=== PATIENT | female | born 1945 | race Caucasian/White ===

== ENCOUNTER 2018-01-03 06:27 | Inpatient (IN) | payer MEDICARE, BC ==
[2018-01-03] MEDS: ONDANSETRON 4MG/2ML VIAL (J2405) IV (06:45)
[2018-01-03] MEDS: fentaNYL 100 MCG/2 ML INJECTION (J3010) IV ×3 (06:45→08:35)
[2018-01-03] MEDS: NS 500 ML IV (07:08)
[2018-01-03 07:25] LABS: BASO % 0.6 % (0.0-1.0); EOS # 0.1 10^3/uL (0.0-0.50); EOS % 1.3 % (0.0-3.0); HEMATOCRIT 41.5 % (36.0-47.0); HEMOGLOBIN 13.1 g/dl (12.0-15.5); IMMATURE GRANULOCYTE % 0.5 % (0-3.0); LYMPH # 2.1 10^3/uL (1.5-4.5); LYMPH % 32.4 % (24.0-44.0); MEAN CORPUSCULAR HGB CONC 31.6 g/dl (32.0-36.5); MEAN CORPUSCULAR VOLUME 88.7 fl (80.0-96.0); MONO # 0.5 10^3/uL (0.0-0.8); MONO % 8.5 % (0.0-5.0); NEUTROPHILS # 3.6 10^3/uL (1.8-7.7); NEUTROPHILS % 56.7 % (36.0-66.0); PLATELET COUNT, AUTOMATED 264 10^3/uL (150-450); RED BLOOD COUNT 4.68 10^6/uL (4.00-5.40); RED CELL DISTRIBUTION WIDTH 13.5 % (11.5-14.5); WHITE BLOOD COUNT 6.4 10^3/uL (4.0-10.0)
[2018-01-03 07:29] LABS: INR 0.92; PROTHROMBIN TIME 12.4 SECONDS (12.4-14.5)
[2018-01-03 07:30] LABS: PARTIAL THROMBOPLASTIN TIME 31.8 SECONDS (26.8-37.9)
[2018-01-03 07:31] LABS: ANION GAP 9 MEQ/L (8-16); BLOOD UREA NITROGEN 20 MG/DL (7-18); CARBON DIOXIDE LEVEL 25 MEQ/L (21-32); CHLORIDE LEVEL 110 MEQ/L (98-107); CREATININE FOR GFR 0.75 MG/DL (0.55-1.30); GLOMERULAR FILTRATION RATE > 60.0 (>39); GLUCOSE, FASTING 106 MG/DL (70-100); POTASSIUM SERUM 4.1 MEQ/L (3.5-5.1); SODIUM LEVEL 144 MEQ/L (136-145)
[2018-01-03] MEDS ORDERED: PROPOFOL 200 MG/20 ML VIAL As Ordered (07:31)
[2018-01-03] MEDS: PROPOFOL 200 MG/20 ML VIAL IV (07:57)
[2018-01-03] MEDS ORDERED: ONDANSETRON 4MG/2ML VIAL (J2405) IV (08:30)
[2018-01-03] MEDS ORDERED: BISACODYL 5 MG TAB PO (08:30)
[2018-01-03] MEDS: **hydrALAZINE HCL** 25 MG TAB PO ×2 (09:00→20:41)
[2018-01-03] MEDS: SENOKOT S TAB PO ×2 (09:00→20:39)
[2018-01-03] MEDS ORDERED: BUPIVACAINE/EPIN 0.5% 30 ML VIAL As Ordered (10:25)
[2018-01-03] MEDS: MORPHINE 4 MG/ML 1ML VIAL/SYRINGE (J2270) IV ×2 (10:51→12:14)
[2018-01-03] MEDS ORDERED: PERCOCET 5MG/325MG TAB PO ×3 (13:00→13:45)
[2018-01-03] MEDS: PERCOCET 5MG/325MG TAB PO (20:40)
[2018-01-04] MEDS: PERCOCET 5MG/325MG TAB PO ×4 (00:43→20:26)
[2018-01-04 06:35] LABS: BASO % 0.4 % (0.0-1.0); EOS # 0.1 10^3/uL (0.0-0.50); EOS % 0.9 % (0.0-3.0); HEMATOCRIT 35.4 % (36.0-47.0); HEMOGLOBIN 11.5 g/dl (12.0-15.5); IMMATURE GRANULOCYTE % 0.3 % (0-3.0); LYMPH # 1.7 10^3/uL (1.5-4.5); LYMPH % 23.9 % (24.0-44.0); MEAN CORPUSCULAR HEMOGLOBIN 28.7 pg (27.0-33.0); MEAN CORPUSCULAR HGB CONC 32.5 g/dl (32.0-36.5); MEAN CORPUSCULAR VOLUME 88.3 fl (80.0-96.0); MONO # 1.1 10^3/uL (0.0-0.8); MONO % 15.7 % (0.0-5.0); NEUTROPHILS # 4.1 10^3/uL (1.8-7.7); NEUTROPHILS % 58.8 % (36.0-66.0); PLATELET COUNT, AUTOMATED 215 10^3/uL (150-450); RED BLOOD COUNT 4.01 10^6/uL (4.00-5.40); RED CELL DISTRIBUTION WIDTH 13.4 % (11.5-14.5); WHITE BLOOD COUNT 6.9 10^3/uL (4.0-10.0)
[2018-01-04 07:02] LABS: ANION GAP 8 MEQ/L (8-16); BLOOD UREA NITROGEN 15 MG/DL (7-18); CALCIUM LEVEL 8.5 MG/DL (8.8-10.2); CARBON DIOXIDE LEVEL 25 MEQ/L (21-32); CHLORIDE LEVEL 108 MEQ/L (98-107); CREATININE FOR GFR 0.56 MG/DL (0.55-1.30); GLOMERULAR FILTRATION RATE > 60.0 (>39); GLUCOSE, FASTING 104 MG/DL (70-100); POTASSIUM SERUM 3.8 MEQ/L (3.5-5.1); SODIUM LEVEL 141 MEQ/L (136-145)
[2018-01-04] MEDS: SENOKOT S TAB PO (09:42)
[2018-01-04] MEDS: **hydrALAZINE HCL** 25 MG TAB PO (09:43)
[2018-01-04] MEDS: BUPIVACAINE/EPIN 0.25% 30 ML VIAL As Ordered (13:12)
[2018-01-04] MEDS: ceFAZolin 1GM INJ (J0690 PER 500MG) As Ordered (13:12)
[2018-01-04] MEDS: ceFAZolin 2 GM/D5W 50 ML IV BAG (J0690 PER 500MG) As Ordered (14:09)
[2018-01-04] MEDS ORDERED: fentaNYL 100 MCG/2 ML INJECTION (J3010) As Ordered (14:57)
[2018-01-04] MEDS ORDERED: LIDOCAINE 2% INJ 100 MG/5 ML SDV (FOR ANES.) As Ordered (14:57)
[2018-01-04] MEDS ORDERED: PROPOFOL 200 MG/20 ML VIAL As Ordered (14:57)
[2018-01-04] MEDS ORDERED: MIDAZOLAM INJ 2 MG/2 ML VIAL (J2250) As Ordered (14:57)
[2018-01-04] MEDS ORDERED: BUPIVACAINE/DEXTROSE 0.75% 2 ML AMP As Ordered (15:09)
[2018-01-04] MEDS ORDERED: fentaNYL 100 MCG/2 ML INJECTION (J3010) IV (16:45)
[2018-01-04] MEDS ORDERED: ONDANSETRON 4MG/2ML VIAL (J2405) IV (16:45)
[2018-01-04] MEDS ORDERED: NORCO, ANEXSIA 5/325MG TABLET (HYDROcodone/ACETAMINOPHEN) PO (16:45)
[2018-01-04] MEDS: LR 1,000 ML IV (16:45)
[2018-01-04] MEDS ORDERED: MORPHINE 4 MG/ML 1ML VIAL/SYRINGE (J2270) IV (17:15)
[2018-01-04] MEDS: HEPARIN SOD (PORCINE) 5000 UNITS/ML VIAL SQ (20:26)
[2018-01-05] MEDS: PERCOCET 5MG/325MG TAB PO ×5 (01:12→21:50)
[2018-01-05] MEDS: MOM 30ML SUSPENSION UDC PO (09:57)
[2018-01-05] MEDS: HEPARIN SOD (PORCINE) 5000 UNITS/ML VIAL SQ ×2 (09:57→21:50)
[2018-01-05] MEDS: METAMUCIL (PSYLLIUM) PACKET PO (09:57)
[2018-01-05] MEDS: LOSARTAN 50 MG TAB PO (12:36)
[2018-01-06 07:08] LABS: BASO % 0.4 % (0.0-1.0); EOS # 0.1 10^3/uL (0.0-0.50); EOS % 1.5 % (0.0-3.0); HEMATOCRIT 34.9 % (36.0-47.0); IMMATURE GRANULOCYTE % 0.2 % (0-3.0); LYMPH % 25.2 % (24.0-44.0); MEAN CORPUSCULAR HEMOGLOBIN 28.1 pg (27.0-33.0); MEAN CORPUSCULAR HGB CONC 31.5 g/dl (32.0-36.5); MONO # 0.9 10^3/uL (0.0-0.8); MONO % 10.9 % (0.0-5.0); NEUTROPHILS % 61.8 % (36.0-66.0); PLATELET COUNT, AUTOMATED 215 10^3/uL (150-450); RED BLOOD COUNT 3.92 10^6/uL (4.00-5.40); RED CELL DISTRIBUTION WIDTH 13.2 % (11.5-14.5); WHITE BLOOD COUNT 8.1 10^3/uL (4.0-10.0)
[2018-01-06 07:25] LABS: ANION GAP 5 MEQ/L (8-16); BLOOD UREA NITROGEN 16 MG/DL (7-18); CALCIUM LEVEL 8.5 MG/DL (8.8-10.2); CARBON DIOXIDE LEVEL 29 MEQ/L (21-32); CHLORIDE LEVEL 109 MEQ/L (98-107); CREATININE FOR GFR 0.54 MG/DL (0.55-1.30); GLOMERULAR FILTRATION RATE > 60.0 (>39); GLUCOSE, FASTING 95 MG/DL (70-100); POTASSIUM SERUM 3.9 MEQ/L (3.5-5.1); SODIUM LEVEL 143 MEQ/L (136-145)
[2018-01-06] MEDS: PERCOCET 5MG/325MG TAB PO ×3 (07:47→20:38)
[2018-01-06] MEDS: MOM 30ML SUSPENSION UDC PO (09:45)
[2018-01-06] MEDS: METAMUCIL (PSYLLIUM) PACKET PO (09:46)
[2018-01-06] MEDS: HEPARIN SOD (PORCINE) 5000 UNITS/ML VIAL SQ ×2 (09:46→20:38)
[2018-01-06] MEDS: LOSARTAN 50 MG TAB PO (09:47)
[2018-01-07] MEDS: PERCOCET 5MG/325MG TAB PO ×3 (05:36→21:02)
[2018-01-07] MEDS: METAMUCIL (PSYLLIUM) PACKET PO (09:00)
[2018-01-07] MEDS: MOM 30ML SUSPENSION UDC PO (09:00)
[2018-01-07] MEDS: LOSARTAN 50 MG TAB PO (09:10)
[2018-01-07] MEDS: HEPARIN SOD (PORCINE) 5000 UNITS/ML VIAL SQ ×2 (09:11→21:02)
[2018-01-08] MEDS: PERCOCET 5MG/325MG TAB PO ×4 (05:46→21:26)
[2018-01-08] MEDS: MOM 30ML SUSPENSION UDC PO (09:00)
[2018-01-08] MEDS: METAMUCIL (PSYLLIUM) PACKET PO (09:00)
[2018-01-08] MEDS: HEPARIN SOD (PORCINE) 5000 UNITS/ML VIAL SQ ×2 (09:09→21:26)
[2018-01-08] MEDS: LOSARTAN 50 MG TAB PO (09:10)
[2018-01-09] MEDS: PERCOCET 5MG/325MG TAB PO ×4 (04:47→21:26)
[2018-01-09] MEDS: MOM 30ML SUSPENSION UDC PO (09:00)
[2018-01-09] MEDS: METAMUCIL (PSYLLIUM) PACKET PO (09:00)
[2018-01-09] MEDS: LOSARTAN 50 MG TAB PO (09:26)
[2018-01-09] MEDS: HEPARIN SOD (PORCINE) 5000 UNITS/ML VIAL SQ ×2 (09:26→21:25)
[2018-01-10] MEDS: PERCOCET 5MG/325MG TAB PO ×4 (01:30→20:49)
[2018-01-10] MEDS: METAMUCIL (PSYLLIUM) PACKET PO (08:16)
[2018-01-10] MEDS: HEPARIN SOD (PORCINE) 5000 UNITS/ML VIAL SQ ×2 (08:16→20:48)
[2018-01-10] MEDS: MOM 30ML SUSPENSION UDC PO (08:16)
[2018-01-10] MEDS: LOSARTAN 50 MG TAB PO (08:17)
[2018-01-11 08:10] LABS: BASO % 0.4 % (0.0-1.0); EOS # 0.1 10^3/uL (0.0-0.50); EOS % 1.8 % (0.0-3.0); HEMATOCRIT 34.3 % (36.0-47.0); HEMOGLOBIN 10.9 g/dl (12.0-15.5); IMMATURE GRANULOCYTE % 0.5 % (0-3.0); LYMPH # 1.5 10^3/uL (1.5-4.5); LYMPH % 18.6 % (24.0-44.0); MEAN CORPUSCULAR HEMOGLOBIN 28.2 pg (27.0-33.0); MEAN CORPUSCULAR HGB CONC 31.8 g/dl (32.0-36.5); MEAN CORPUSCULAR VOLUME 88.9 fl (80.0-96.0); MONO # 0.7 10^3/uL (0.0-0.8); MONO % 8.7 % (0.0-5.0); NEUTROPHILS # 5.5 10^3/uL (1.8-7.7); PLATELET COUNT, AUTOMATED 304 10^3/uL (150-450); RED BLOOD COUNT 3.86 10^6/uL (4.00-5.40); RED CELL DISTRIBUTION WIDTH 12.9 % (11.5-14.5); WHITE BLOOD COUNT 7.9 10^3/uL (4.0-10.0)
[2018-01-11 08:32] LABS: ANION GAP 5 MEQ/L (8-16); BLOOD UREA NITROGEN 15 MG/DL (7-18); CALCIUM LEVEL 8.9 MG/DL (8.8-10.2); CARBON DIOXIDE LEVEL 32 MEQ/L (21-32); CHLORIDE LEVEL 106 MEQ/L (98-107); CREATININE FOR GFR 0.67 MG/DL (0.55-1.30); GLOMERULAR FILTRATION RATE > 60.0 (>39); GLUCOSE, FASTING 125 MG/DL (70-100); POTASSIUM SERUM 4.3 MEQ/L (3.5-5.1); SODIUM LEVEL 143 MEQ/L (136-145)
[2018-01-11] MEDS: LOSARTAN 50 MG TAB PO (08:44)
[2018-01-11] MEDS: HEPARIN SOD (PORCINE) 5000 UNITS/ML VIAL SQ (08:44)
[2018-01-11] MEDS: METAMUCIL (PSYLLIUM) PACKET PO (08:45)
[2018-01-11] MEDS: MOM 30ML SUSPENSION UDC PO (08:45)
[2018-01-11] MEDS: PERCOCET 5MG/325MG TAB PO (12:09)
== END 2018-01-11 12:55 | DRG 563 ==
LOC: M ED 06:27 → M ED INP 08:23 → M MS5PR 11:05
PROC: 0QSJXZZ Reposition Right Fibula, External Approach (ICD-10-PCS; principal; 2018-01-04 14:55)
DX: S82.851A Displaced trimalleolar fracture of right lower leg, initial encounter for closed fracture (principal); S90.521A Blister (nonthermal), right ankle, initial encounter; W18.09XA Striking against other object with subsequent fall, initial encounter; Y92.018 Other place in single-family (private) house as the place of occurrence of the external cause; I10 Essential (primary) hypertension; K58.9 Irritable bowel syndrome, unspecified; S82.451A Displaced comminuted fracture of shaft of right fibula, initial encounter for closed fracture; Z98.84 Bariatric surgery status; Z79.899 Other long term (current) drug therapy; Z85.820 Personal history of malignant melanoma of skin; Y99.8 Other external cause status; Z53.09 Procedure and treatment not carried out because of other contraindication

== ENCOUNTER → 2018-01-16 | Outpatient (REF) ==
[2018-01-16 11:27] LABS: HEMATOCRIT 36.5 % (36.0-47.0); HEMOGLOBIN 11.5 g/dl (12.0-15.5); MEAN CORPUSCULAR HEMOGLOBIN 27.9 pg (27.0-33.0); MEAN CORPUSCULAR HGB CONC 31.5 g/dl (32.0-36.5); MEAN CORPUSCULAR VOLUME 88.6 fl (80.0-96.0); PLATELET COUNT, AUTOMATED 481 10^3/uL (150-450); RED BLOOD COUNT 4.12 10^6/uL (4.00-5.40); RED CELL DISTRIBUTION WIDTH 13.1 % (11.5-14.5)
[2018-01-16 11:52] LABS: ANION GAP 12 MEQ/L (8-16); BLOOD UREA NITROGEN 22 MG/DL (7-18); CALCIUM LEVEL 9.2 MG/DL (8.8-10.2); CARBON DIOXIDE LEVEL 27 MEQ/L (21-32); CHLORIDE LEVEL 105 MEQ/L (98-107); CREATININE FOR GFR 0.79 MG/DL (0.55-1.30); GLOMERULAR FILTRATION RATE > 60.0 (>39); GLUCOSE, FASTING 130 MG/DL (70-100); POTASSIUM SERUM 4.1 MEQ/L (3.5-5.1); SODIUM LEVEL 144 MEQ/L (136-145)
== END ==
DX: I10 Essential (primary) hypertension (principal)

== ENCOUNTER 2018-01-22 10:28 | Day surgery (SDC) | payer MEDICARE, BC ==
[2018-01-22] MEDS ORDERED: ROPIvacaine 0.5% 30 ML INJECTION (J2795 PER 1MG) (10:29)
[2018-01-22] MEDS ORDERED: dexameTHASONE 10 MG/1 ML VIAL PRES.FREE (J1100) (10:29)
[2018-01-22] MEDS ORDERED: LIDOCAINE 1% MDV 20ML VIAL SQ (11:00)
[2018-01-22] MEDS ORDERED: MIDAZOLAM INJ 2 MG/2 ML VIAL (J2250) As Ordered ×2 (11:01→13:10)
[2018-01-22] MEDS ORDERED: fentaNYL 100 MCG/2 ML INJECTION (J3010) As Ordered ×4 (11:01→16:03)
[2018-01-22] MEDS ORDERED: ROCURONIUM BROMIDE 50 MG/5 ML VIAL As Ordered (11:02)
[2018-01-22] MEDS ORDERED: LIDOCAINE 2% INJ 100 MG/5 ML SDV (FOR ANES.) As Ordered (11:02)
[2018-01-22] MEDS ORDERED: PROPOFOL 200 MG/20 ML VIAL As Ordered (11:02)
[2018-01-22] MEDS: LR 1,000 ML IV ×3 (11:48→19:58)
[2018-01-22] MEDS: fentaNYL 100 MCG/2 ML INJECTION (J3010) IV (13:21)
[2018-01-22] MEDS: MIDAZOLAM INJ 2 MG/2 ML VIAL (J2250) IV (13:21)
[2018-01-22] MEDS: BUPIVACAINE/EPIN 0.25% 30 ML VIAL As Ordered (14:23)
[2018-01-22] MEDS ORDERED: dexameTHASONE 4 MG/ML 1ML VIAL (J1100) As Ordered (14:37)
[2018-01-22] MEDS ORDERED: ONDANSETRON 4MG/2ML VIAL (J2405) As Ordered (14:37)
[2018-01-22] MEDS: ceFAZolin 1GM INJ (J0690 PER 500MG) As Ordered (15:13)
[2018-01-22] MEDS ORDERED: KETOROLAC 60 MG/2 ML VIAL (J1885) As Ordered (16:41)
[2018-01-22] MEDS: MEPERIDINE INJ 25 MG/ML VIAL (J2175) IV ×2 (17:20→17:27)
[2018-01-22] MEDS ORDERED: MEPERIDINE INJ 25 MG/ML VIAL (J2175) As Ordered (17:23)
[2018-01-22] MEDS ORDERED: PERCOCET 5MG/325MG TAB PO (17:30)
[2018-01-22] MEDS ORDERED: ONDANSETRON 4MG/2ML VIAL (J2405) IV ×2 (17:30)
[2018-01-22] MEDS ORDERED: fentaNYL 100 MCG/2 ML INJECTION (J3010) IV (17:30)
[2018-01-22] MEDS ORDERED: NORCO, ANEXSIA 5/325MG TABLET (HYDROcodone/ACETAMINOPHEN) PO (17:30)
[2018-01-22] MEDS: MORPHINE 4 MG/ML 1ML VIAL/SYRINGE (J2270) IV (21:53)
[2018-01-22] MEDS: PERCOCET 5MG/325MG TAB PO (22:50)
[2018-01-23] MEDS ORDERED: fentaNYL 100 MCG/2 ML INJECTION (J3010) IV (02:30)
[2018-01-23] MEDS: LR 1,000 ML IV (02:30)
[2018-01-23] MEDS ORDERED: ONDANSETRON 4MG/2ML VIAL (J2405) IV (02:30)
[2018-01-23] MEDS ORDERED: MEPERIDINE INJ 25 MG/ML VIAL (J2175) IV (02:30)
[2018-01-23] MEDS ORDERED: NORCO, ANEXSIA 5/325MG TABLET (HYDROcodone/ACETAMINOPHEN) PO (02:30)
[2018-01-23] MEDS: PERCOCET 5MG/325MG TAB PO (08:47)
[2018-01-23] MEDS: GABAPENTIN 100 MG CAP PO ×2 (09:48→16:37)
[2018-01-23 13:54] LABS: HEMATOCRIT 33.1 % (36.0-47.0); HEMOGLOBIN 10.6 g/dl (12.0-15.5); MEAN CORPUSCULAR HEMOGLOBIN 28.3 pg (27.0-33.0); MEAN CORPUSCULAR VOLUME 88.3 fl (80.0-96.0); PLATELET COUNT, AUTOMATED 407 10^3/uL (150-450); RED BLOOD COUNT 3.75 10^6/uL (4.00-5.40); WHITE BLOOD COUNT 13.1 10^3/uL (4.0-10.0)
[2018-01-23 14:10] LABS: ANION GAP 8 MEQ/L (8-16); BLOOD UREA NITROGEN 25 MG/DL (7-18); CALCIUM LEVEL 8.8 MG/DL (8.8-10.2); CARBON DIOXIDE LEVEL 26 MEQ/L (21-32); CHLORIDE LEVEL 108 MEQ/L (98-107); CREATININE FOR GFR 0.87 MG/DL (0.55-1.30); GLOMERULAR FILTRATION RATE > 60.0 (>39); GLUCOSE, FASTING 111 MG/DL (70-100); POTASSIUM SERUM 3.8 MEQ/L (3.5-5.1); SODIUM LEVEL 142 MEQ/L (136-145)
[2018-01-23] MEDS: RIVAROXABAN 10 MG TAB (XARELTO) PO (16:37)
== END 2018-01-23 17:30 ==
LOC: M SDC 10:28 → M MS5PR 19:38 → M SDC 01-23 17:30 → M MS5PR 01-23 13:26
PROC: 0QSJ04Z Reposition Right Fibula with Internal Fixation Device, Open Approach (ICD-10-PCS; principal; 2018-01-22 12:45)
DX: S82.851A Displaced trimalleolar fracture of right lower leg, initial encounter for closed fracture (principal); I10 Essential (primary) hypertension; Z98.84 Bariatric surgery status; Z79.01 Long term (current) use of anticoagulants

== ENCOUNTER 2018-01-23 17:35 | Inpatient (IN) | payer MEDICARE, BC ==
[~2018-01-23 17:35] MED LIST: BISACODYL 10 MG SUPP PR; BISACODYL 5 MG TAB PO; METAMUCIL (PSYLLIUM) PACKET PO; MIRALAX *UNIT DOSE* 17GM PACKET PO; MOM 30ML SUSPENSION UDC PO; ONDANSETRON 4 MG TAB (S0181) PO
[2018-01-23] MEDS ORDERED: RIVAROXABAN 10 MG TAB (XARELTO) PO (18:00)
[2018-01-23] MEDS: ACETAMINOPHEN 500 MG TAB PO (18:30)
[2018-01-23] MEDS: PERCOCET 5MG/325MG TAB PO (21:22)
[2018-01-23] MEDS: SENOKOT S TAB PO (21:22)
[2018-01-24] MEDS: PERCOCET 5MG/325MG TAB PO ×3 (00:44→20:44)
[2018-01-24] MEDS: ACETAMINOPHEN 500 MG TAB PO ×3 (06:33→17:26)
[2018-01-24 07:12] LABS: BASO % 0.5 % (0.0-1.0); EOS # 0.1 10^3/uL (0.0-0.50); EOS % 1.6 % (0.0-3.0); HEMATOCRIT 33.1 % (36.0-47.0); HEMOGLOBIN 10.6 g/dl (12.0-15.5); IMMATURE GRANULOCYTE % 0.2 % (0-3.0); LYMPH % 36.4 % (24.0-44.0); MEAN CORPUSCULAR HEMOGLOBIN 28.3 pg (27.0-33.0); MEAN CORPUSCULAR VOLUME 88.5 fl (80.0-96.0); MONO # 0.7 10^3/uL (0.0-0.8); MONO % 8.8 % (0.0-5.0); NEUTROPHILS # 4.4 10^3/uL (1.8-7.7); NEUTROPHILS % 52.5 % (36.0-66.0); PLATELET COUNT, AUTOMATED 384 10^3/uL (150-450); RED BLOOD COUNT 3.74 10^6/uL (4.00-5.40); RED CELL DISTRIBUTION WIDTH 13.2 % (11.5-14.5); WHITE BLOOD COUNT 8.3 10^3/uL (4.0-10.0)
[2018-01-24 07:42] LABS: ALBUMIN/GLOBULIN RATIO 0.91 (1.00-1.93); ALKALINE PHOSPHATASE 65 U/L (45-117); ALT/SGPT 22 U/L (12-78); ANION GAP 6 MEQ/L (8-16); AST/SGOT 15 U/L (7-37); BILIRUBIN,TOTAL 0.4 MG/DL (0.2-1.0); BLOOD UREA NITROGEN 19 MG/DL (7-18); CALCIUM LEVEL 8.8 MG/DL (8.8-10.2); CARBON DIOXIDE LEVEL 29 MEQ/L (21-32); CHLORIDE LEVEL 107 MEQ/L (98-107); CREATININE FOR GFR 0.71 MG/DL (0.55-1.30); GLOMERULAR FILTRATION RATE > 60.0 (>39); GLUCOSE, FASTING 84 MG/DL (70-100); SODIUM LEVEL 142 MEQ/L (136-145); TOTAL PROTEIN 6.3 GM/DL (6.4-8.2)
[2018-01-24] MEDS: SENOKOT S TAB PO ×2 (09:05→20:43)
[2018-01-24] MEDS: OMEPRAZOLE 20 MG CAP PO (09:05)
[2018-01-24] MEDS: LOSARTAN 50 MG TAB PO (09:05)
[2018-01-24] MEDS: MULTIVITAMINS/MINERALS THERAP 1 TAB PO (09:05)
[2018-01-24] MEDS: GABAPENTIN 100 MG CAP PO ×3 (09:41→20:43)
[2018-01-24] MEDS: RIVAROXABAN 10 MG TAB (XARELTO) PO (17:26)
[2018-01-24] MEDS: HYOSCYAMINE SULFATE 0.125 MG SUBL TABLET PO ×2 (17:26→20:43)
[2018-01-25] MEDS: ACETAMINOPHEN 500 MG TAB PO ×3 (06:29→18:12)
[2018-01-25] MEDS: SENOKOT S TAB PO ×3 (09:00→21:00)
[2018-01-25] MEDS: MULTIVITAMINS/MINERALS THERAP 1 TAB PO (09:15)
[2018-01-25] MEDS: LOSARTAN 50 MG TAB PO (09:15)
[2018-01-25] MEDS: HYOSCYAMINE SULFATE 0.125 MG SUBL TABLET PO ×3 (09:16→20:32)
[2018-01-25] MEDS: GABAPENTIN 100 MG CAP PO ×3 (09:16→20:32)
[2018-01-25] MEDS: OMEPRAZOLE 20 MG CAP PO (09:16)
[2018-01-25] MEDS: RIVAROXABAN 10 MG TAB (XARELTO) PO (18:12)
[2018-01-25] MEDS: PERCOCET 5MG/325MG TAB PO (20:33)
[2018-01-26] MEDS: ACETAMINOPHEN 500 MG TAB PO ×3 (07:05→17:01)
[2018-01-26] MEDS: GABAPENTIN 100 MG CAP PO ×3 (08:40→20:30)
[2018-01-26] MEDS: HYOSCYAMINE SULFATE 0.125 MG SUBL TABLET PO ×3 (08:40→20:29)
[2018-01-26] MEDS: MULTIVITAMINS/MINERALS THERAP 1 TAB PO (08:40)
[2018-01-26] MEDS: SENOKOT S TAB PO ×2 (08:40→20:30)
[2018-01-26] MEDS: OMEPRAZOLE 20 MG CAP PO ×2 (08:40→08:43)
[2018-01-26] MEDS: LOSARTAN 50 MG TAB PO (08:40)
[2018-01-26] MEDS: RIVAROXABAN 10 MG TAB (XARELTO) PO (17:01)
[2018-01-26] MEDS: PERCOCET 5MG/325MG TAB PO (20:30)
[2018-01-27] MEDS: ACETAMINOPHEN 500 MG TAB PO ×3 (06:23→18:13)
[2018-01-27] MEDS: SENOKOT S TAB PO ×2 (09:00→20:23)
[2018-01-27] MEDS: LOSARTAN 50 MG TAB PO (09:03)
[2018-01-27] MEDS: HYOSCYAMINE SULFATE 0.125 MG SUBL TABLET PO ×3 (09:03→20:22)
[2018-01-27] MEDS: GABAPENTIN 100 MG CAP PO ×3 (09:04→20:22)
[2018-01-27] MEDS: OMEPRAZOLE 20 MG CAP PO (09:04)
[2018-01-27] MEDS: MULTIVITAMINS/MINERALS THERAP 1 TAB PO (09:04)
[2018-01-27] MEDS: RIVAROXABAN 10 MG TAB (XARELTO) PO (18:13)
[2018-01-27] MEDS: PERCOCET 5MG/325MG TAB PO (20:22)
[2018-01-28] MEDS: ACETAMINOPHEN 500 MG TAB PO ×3 (06:30→17:35)
[2018-01-28] MEDS: HYOSCYAMINE SULFATE 0.125 MG SUBL TABLET PO ×3 (08:10→21:00)
[2018-01-28] MEDS: GABAPENTIN 100 MG CAP PO ×3 (08:10→21:01)
[2018-01-28] MEDS: OMEPRAZOLE 20 MG CAP PO (08:11)
[2018-01-28] MEDS: LOSARTAN 50 MG TAB PO (08:11)
[2018-01-28] MEDS: MULTIVITAMINS/MINERALS THERAP 1 TAB PO (08:11)
[2018-01-28] MEDS: SENOKOT S TAB PO ×2 (09:00→21:01)
[2018-01-28] MEDS: RIVAROXABAN 10 MG TAB (XARELTO) PO (17:36)
[2018-01-28] MEDS: PERCOCET 5MG/325MG TAB PO (21:01)
[2018-01-29] MEDS: ACETAMINOPHEN 500 MG TAB PO (06:05)
[2018-01-29] MEDS: SENOKOT S TAB PO (08:32)
[2018-01-29] MEDS: HYOSCYAMINE SULFATE 0.125 MG SUBL TABLET PO (08:32)
[2018-01-29] MEDS: MULTIVITAMINS/MINERALS THERAP 1 TAB PO (08:32)
[2018-01-29] MEDS: OMEPRAZOLE 20 MG CAP PO (08:32)
[2018-01-29] MEDS: GABAPENTIN 100 MG CAP PO (08:33)
[2018-01-29] MEDS: LOSARTAN 50 MG TAB PO (08:33)
[2018-01-29] MEDS: PERCOCET 5MG/325MG TAB PO (08:33)
== END 2018-01-29 11:10 | disposition home or self-care (01) | DRG 561 ==
LOC: M PM&R 17:35
DX: S82.61XD Displaced fracture of lateral malleolus of right fibula, subsequent encounter for closed fracture with routine healing (principal); S82.51XD Displaced fracture of medial malleolus of right tibia, subsequent encounter for closed fracture with routine healing; S93.04XD Dislocation of right ankle joint, subsequent encounter; K58.9 Irritable bowel syndrome, unspecified; R51 Headache; E86.0 Dehydration; I10 Essential (primary) hypertension; E66.9 Obesity, unspecified; Z98.84 Bariatric surgery status; Z90.710 Acquired absence of both cervix and uterus; Z90.49 Acquired absence of other specified parts of digestive tract; Z85.820 Personal history of malignant melanoma of skin; Z79.899 Other long term (current) drug therapy; Z88.6 Allergy status to analgesic agent; Z88.8 Allergy status to other drugs, medicaments and biological substances; W10.8XXD Fall (on) (from) other stairs and steps, subsequent encounter; Z97.4 Presence of external hearing-aid

== ENCOUNTER → 2019-02-19 | Outpatient (REF) | payer MEDICARE, BC ==
[~2019-02-19] MED LIST changes: -BISACODYL 10 MG SUPP PR; -BISACODYL 5 MG TAB PO; +GABA-1171 PO; +HEPA1INJ23 SQ; +HYDR-3910 PO; +HYOS0.374 PO; +KONS100P6 PO; +LOSA100T50 PO; +MAPA500T2 PO; -METAMUCIL (PSYLLIUM) PACKET PO; +MILK120011 PO; -MIRALAX *UNIT DOSE* 17GM PACKET PO; -MOM 30ML SUSPENSION UDC PO; +MULT1TAB10 PO; +OMEP20CA4 PO; -ONDANSETRON 4 MG TAB (S0181) PO; +PERC5TAB12 PO; +PERCOCET PO; +XARE10TA PO; +YUVA10TA3 PV
[2019-02-19 13:46] LABS: APPEARANCE, URINE HAZY (CLEAR); BACTERIA, URINE AUTO NEGATIVE (NEGATIVE); BILIRUBIN, URINE AUTO NEGATIVE (NEGATIVE); BLOOD, URINE BLOOD NEGATIVE (NEGATIVE); COLOR, URINE YELLOW (YELLOW); GLUCOSE, URINE (UA) AUTO NEGATIVE (NEGATIVE); KETONE, URINE AUTO NEGATIVE (NEGATIVE); LEUKOCYTE ESTERASE, URINE AUTO NEGATIVE (NEGATIVE); MUCUS, URINE SMALL (NEGATIVE); NITRITE, URINE AUTO NEGATIVE (NEGATIVE); PROTEIN, URINE AUTO NEGATIVE (NEGATIVE); RBC, URINE AUTO 4 /HPF (0-3); SQUAMOUS EPITHELIAL CELL UR AU 4 /HPF (0-6); UROBILINOGEN, URINE AUTO 0.2 mg/dL (0.0-2.0); WBC, URINE AUTO 1 /HPF (0-3)
== END ==
LOC: M LAB REF 12:54
PROVIDERS: ATTEND Family Medicine
DX: Z01.818 Encounter for other preprocedural examination (principal)

== ENCOUNTER → 2020-05-27 | Outpatient (REF) | payer MEDICARE ==
[~2020-05-27] MED LIST changes: +OMEP1CAP73 PO; -OMEP20CA4 PO
== END ==
LOC: M WUC 15:46
PROVIDERS: ATTEND Physician Assistant
DX: N39.0 Urinary tract infection, site not specified (principal)

== ENCOUNTER → 2020-06-19 | Outpatient (REF) | payer MEDICARE | LOC: M LAB REF 12:24 | PROVIDERS: ATTEND Physician Assistant Medical | DX: R30.0 Dysuria (principal) ==

== ENCOUNTER → 2020-07-01 | Outpatient (REF) | payer MEDICARE | LOC: M LAB REF 12:25 | PROVIDERS: ATTEND Registered Nurse | DX: R30.0 Dysuria (principal) ==